=== PATIENT | female | born 1980 | race American Indian/Alaskan Native ===

== ENCOUNTER 2020-01-07 18:13 | Emergency (ER) | payer OTHER ==
[2020-01-07 18:38] VITALS: BP 107/71
[2020-01-07] MEDS ORDERED: ACETAMINOPHEN 325 MG TAB PO ONE (19:57)
[2020-01-07] MEDS ORDERED: ACETAMINOPHEN 325 MG TAB ONE (19:57)
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
== END 2020-01-08 00:25 | disposition home or self-care (01) ==
LOC: ED 18:13
DX: S60.211A Contusion of right wrist, initial encounter (principal); Z98.890 Other specified postprocedural states; Z79.899 Other long term (current) drug therapy; V89.2XXA Person injured in unspecified motor-vehicle accident, traffic, initial encounter; Y93.89 Activity, other specified; Y92.410 Unspecified street and highway as the place of occurrence of the external cause; Y99.8 Other external cause status